=== PATIENT | female | born 2000 | race Caucasian/White ===

== ENCOUNTER 2019-01-15 21:27 | Emergency (ER) | payer MEDICAID ==
[~2019-01-15] VITALS: Ht 157.5 cm; Wt 106.6 kg
[2019-01-15 21:32] VITALS: BP 148/80
--- NOTE | 2019-01-15 21:33 | NUR ---
PT AMBULATORY TO ER LOBBY W/ STEADY GAIT IN STABLE CONDITION.
--- NOTE | 2019-01-15 23:36 | NUR ---
ASSUMED CARE OF PT AT THIS TIME. C/O RIGHT INGUINAL ABSCESS X 2 DAYS. AAOX4 WITH EVEN AND STEADY GAIT; PATIENT STATES PAIN OF 8/10; VSS; PATIENT POSITIONED FOR COMFORT; HOB ELEVATED; BEDRAILS UP X2; BED DOWN. ER MD MADE AWARE OF PT STATUS. WILL CONTINUE TO MONITOR.
--- NOTE | 2019-01-15 23:36 | NUR ---
PT AMBULATED TO BED 09.
[2019-01-15] MEDS ORDERED: SULFAMETH/TRIMETH DS 800/160MG 1 TAB PO ONE (23:45)
[2019-01-15] MEDS ORDERED: CEPHALEXIN 500 MG CAP PO ONE (23:45)
[2019-01-16 00:10] VITALS: BP 139/81
--- NOTE | 2019-01-16 00:10 | NUR ---
Patient discharged with v/s stable. Written and verbal after care instructions given and explained. Patient alert, oriented and verbalized understanding of instructions. Ambulatory with steady gait. All questions addressed prior to discharge. ID band removed. Patient advised to follow up with PMD. Rx of BACTRIM AND KEFLEX given. Patient educated on indication of medication including possible reaction and side effects. Opportunity to ask questions provided and answered.
== END 2019-01-16 00:10 | disposition home or self-care (01) ==
LOC: MED 21:27
DX: L02.415 Cutaneous abscess of right lower limb (principal); E11.9 Type 2 diabetes mellitus without complications; J45.909 Unspecified asthma, uncomplicated
CPT/HCPCS: 99283

== ENCOUNTER 2019-02-12 12:58 | Emergency (ER) | payer MEDICAID ==
[~2019-02-12] VITALS: Ht 154.9 cm; Wt 99.9 kg
[2019-02-12 13:15] VITALS: BP 136/63
[2019-02-12] MEDS ORDERED: METF500T PO (13:31)
--- NOTE | 2019-02-12 13:46 | NUR ---
Patient ambulated to bed 12. RN evaluating patient at bedside.
--- NOTE | 2019-02-12 13:55 | NUR ---
PATIENT PRESENTS TO ED WITH c/o vaginal clitoris area with an abrasion, redness, tender s/p stratched by pt as described by her. yellowish dc as well ---has been applying neosporin .. unknown last tetanus DENIES N/V/D; SKIN IS PINK/WARM/DRY; AAOX4 WITH EVEN AND STEADY GAIT; LUNGS CLEAR BL; HR EVEN AND REGULAR; PT DENIES ANY FEVER, CP, SOB, OR COUGH AT THIS TIME; PATIENT STATES PAIN OF 9/10 AT THIS TIME; VSS; PATIENT POSITIONED FOR COMFORT; HOB ELEVATED; BEDRAILS UP X2; BED DOWN. ER MD MADE AWARE OF PT STATUS.
--- NOTE | 2019-02-12 14:36 | NUR ---
Patient discharged with v/s stable. Written and verbal after care instructions given and explained. Patient alert, oriented and verbalized understanding of instructions. Ambulatory with steady gait. All questions addressed prior to discharge. ID band removed. Patient advised to follow up with PMD. Rx of diflucan/keflex/clotrimazole/metformin given. Patient educated on indication of medication including possible reaction and side effects. Opportunity to ask questions provided and answered.
[2019-02-12 14:37] VITALS: BP 133/91
== END 2019-02-12 14:36 | disposition home or self-care (01) ==
LOC: MED 12:58
DX: S30.814A Abrasion of vagina and vulva, initial encounter (principal); N76.0 Acute vaginitis; B37.3 Candidiasis of vulva and vagina; N39.0 Urinary tract infection, site not specified; E11.65 Type 2 diabetes mellitus with hyperglycemia; F17.210 Nicotine dependence, cigarettes, uncomplicated; J45.909 Unspecified asthma, uncomplicated; Z79.84 Long term (current) use of oral hypoglycemic drugs; X58.XXXA Exposure to other specified factors, initial encounter; Y93.89 Activity, other specified; Y92.89 Other specified places as the place of occurrence of the external cause; Y99.8 Other external cause status
CPT/HCPCS: 81002; 81025; 82948; 90471; 90715; 99283

== ENCOUNTER 2019-04-18 21:06 | Emergency (ER) | payer MEDICAID ==
[~2019-04-18] VITALS: Ht 157.5 cm; Wt 99.8 kg
[~2019-04-18 21:06] MED LIST: METF500T PO
[2019-04-18 21:16] VITALS: BP 120/82
--- NOTE | 2019-04-18 21:16 | NUR ---
TO BED # 02 AMBULATORY
--- NOTE | 2019-04-18 21:20 | NUR ---
PT IS A 18 Y/O FEMALE WHO PRESENTS TO THE ED C/O VAGINAL PAIN. PT STATES THAT SHE WAS SHOWERING X4 DAYS WHEN SHE NICKED HER VAGINA. PT REPORTS 6/10 BURNING PAIN WITH DISCHARGE. PT DENIES CP, SOB, N/V/D. PT AWAKE AND ALERT, RR EVEN/UNLABORED. PT REPOSITIONED FOR COMFORT, BED IN LOWEST POSITION. ER MD DR. HOWARD NOTIFIED. WILL CONTINUE TO MONITOR. PMH---JENNIFER MIRA
[2019-04-18] MEDS ORDERED: NACL 0.9% 2,000 ML IV ONE (22:09)
[2019-04-18 22:34] LABS: BASOPHILS % (AUTO) 0.5 % (0.0-2.0); EOSINOPHILS # (AUTO) 0.1 K/uL (0-0.4); EOSINOPHILS % (AUTO) 1.2 % (0.0-4.0); HEMATOCRIT 46.4 % (36-48); HEMOGLOBIN 15.7 g/dL (12.0-16.0); LYMPHOCYTES # (AUTO) 2.2 K/uL (2.5-16.5); LYMPHOCYTES % (AUTO) 30.6 % (20.5-51.1); MEAN CORPUSCULAR HEMOGLOBIN 30 pg (27-31); MEAN CORPUSCULAR HGB CONC 34 g/dL (33-37); MEAN CORPUSCULAR VOLUME 88.5 fL (80-94); MONOCYTES # (AUTO) 0.5 K/uL (0.8-1.0); MONOCYTES % (AUTO) 6.6 % (1.7-9.3); NEUTROPHILS # (AUTO) 4.4 K/uL (1.8-7.7); NEUTROPHILS % (AUTO) 61.1 % (42.2-75.2); PLATELET COUNT (AUTO) 189 K/uL (140-450); RED BLOOD CELL COUNT(AUTO) 5.24 MIL/uL (4.20-5.40); RED CELL DISTRIBUTION WIDTH 12.8 % (11.6-13.7); WHITE BLOOD COUNT (AUTO) 7.2 K/uL (4.5-11.0)
[2019-04-18 22:49] LABS: ALBUMIN 3.5 g/dL (3.4-5.0); ANION GAP 12.8 (8-16); CARBON DIOXIDE 28.3 mmol/L (21-32); CREATININE 0.8 mg/dL (0.6-1.3); POTASSIUM 4.1 mmol/L (3.5-5.1); TOTAL BILIRUBIN 0.4 mg/dL (0.0-1.0)
[2019-04-18] MEDS ORDERED: INSULIN REGULAR, HUMAN 100 UNIT/ML VIAL IV ONE (23:20)
[2019-04-18 23:37] LABS: APPEARANCE,URINE SL CLOUDY (CLEAR); BILIRUBIN,URINE NEGATIVE (NEGATIVE); BLOOD, URINE NEGATIVE (NEGATIVE); COLOR,URINE YELLOW (YELLOW); LEUKOCYTE ESTERASE ,URINE TRACE (NEGATIVE); NITRITE, URINE NEGATIVE (NEGATIVE); UGLUCOSE 3+ (NEGATIVE)
[2019-04-18 23:50] LABS: RBC,URINE 0-5 /HPF (0-5); TRICHOMONAS,URINE Few /HPF (None Seen)
--- NOTE | 2019-04-19 02:30 | NUR ---
ALL RESULTS BACK AND NOTED BY ERMD AND FOR D/C
[2019-04-19 02:50] VITALS: BP 110/78
--- NOTE | 2019-04-19 02:50 | NUR ---
Patient discharged with v/s stable. Written and verbal after care instructions given and explained. Patient alert, oriented and verbalized understanding of instructions. Ambulatory with steady gait. All questions addressed prior to discharge. ID band removed. Patient advised to follow up with PMD. Rx of KEFLEX, MICONAZOLE, FLAGYL given. Patient educated on indication of medication including possible reaction and side effects. Opportunity to ask questions provided and answered.
--- NOTE | 2019-04-19 12:54 | NUR ---
Late entry. Confirmed with RN that 0.9 NS 1000ml IV bolus complete at 2320
[2019-04-21 06:08] LABS: CHLAMYDIA TRACHOMATIS AMP DNA Negative (Negative)
== END 2019-04-19 02:50 | disposition home or self-care (01) ==
LOC: MED 21:06
DX: E11.65 Type 2 diabetes mellitus with hyperglycemia (principal); N39.0 Urinary tract infection, site not specified; N76.0 Acute vaginitis; A59.9 Trichomoniasis, unspecified; J45.909 Unspecified asthma, uncomplicated; F17.210 Nicotine dependence, cigarettes, uncomplicated; Z79.84 Long term (current) use of oral hypoglycemic drugs; Z71.6 Tobacco abuse counseling
CPT/HCPCS: 36415; 80053; 81001; 81025; 83690; 85025; 87086; 87210; 87491; 96361; 96374; 99283; J1815; J7030

== ENCOUNTER 2019-08-16 16:20 | Emergency (ER) | payer MEDICAID ==
[~2019-08-16] VITALS: Ht 160 cm; Wt 91.8 kg
[2019-08-16 16:34] VITALS: BP 153/81
[2019-08-16] MEDS ORDERED: NACL 0.9% 1,000 ML IV ONE (17:15)
[2019-08-16] MEDS ORDERED: MORPHINE SULFATE 4 MG/ML SYR IVP ONE (17:20)
[2019-08-16] MEDS ORDERED: ONDANSETRON 4 MG/2 ML VIAL IVP ONE (17:20)
[2019-08-16 17:52] LABS: APPEARANCE,URINE CLEAR (CLEAR); BILIRUBIN,URINE NEGATIVE (NEGATIVE); BLOOD, URINE NEGATIVE (NEGATIVE); COLOR,URINE YELLOW (YELLOW); LEUKOCYTE ESTERASE ,URINE NEGATIVE (NEGATIVE); NITRITE, URINE NEGATIVE (NEGATIVE); UGLUCOSE 3+ (NEGATIVE)
[2019-08-16] MEDS ORDERED: cefTRIAXone 1,000 MG VIAL ONE (18:03)
[2019-08-16 18:05] LABS: BASOPHILS % (AUTO) 0.3 % (0.0-2.0); EOSINOPHILS # (AUTO) 0.1 K/uL (0-0.4); EOSINOPHILS % (AUTO) 0.7 % (0.0-4.0); HEMATOCRIT 48.9 % (36-48); HEMOGLOBIN 16.7 g/dL (12.0-16.0); LYMPHOCYTES # (AUTO) 2.8 K/uL (2.5-16.5); LYMPHOCYTES % (AUTO) 26.3 % (20.5-51.1); MEAN CORPUSCULAR HEMOGLOBIN 31 pg (27-31); MEAN CORPUSCULAR HGB CONC 34 g/dL (33-37); MEAN CORPUSCULAR VOLUME 89.6 fL (80-94); MONOCYTES # (AUTO) 0.9 K/uL (0.8-1.0); MONOCYTES % (AUTO) 8.4 % (1.7-9.3); NEUTROPHILS # (AUTO) 6.8 K/uL (1.8-7.7); NEUTROPHILS % (AUTO) 64.3 % (42.2-75.2); PLATELET COUNT (AUTO) 235 K/uL (140-450); RED BLOOD CELL COUNT(AUTO) 5.46 MIL/uL (4.20-5.40); RED CELL DISTRIBUTION WIDTH 12.4 % (11.6-13.7); WHITE BLOOD COUNT (AUTO) 10.5 K/uL (4.5-11.0)
[2019-08-16 19:03] LABS: ANION GAP 15.3 (8-16); CARBON DIOXIDE 27.7 mmol/L (21-32); CREATININE 0.8 mg/dL (0.6-1.3)
[2019-08-16 19:11] LABS: ALBUMIN 3.7 g/dL (3.4-5.0); TOTAL BILIRUBIN 0.7 mg/dL (0.0-1.0)
[2019-08-16] MEDS ORDERED: LIDOCAINE MPF 1% 10 ML ONE (19:34)
[2019-08-16] MEDS ORDERED: LIDOCAINE MPF 1% 10 MG/ML VIAL INJ ONE (19:35)
[2019-08-16 20:55] VITALS: BP 142/88
== END 2019-08-16 20:55 | disposition home or self-care (01) ==
LOC: MED 16:20
DX: L02.214 Cutaneous abscess of groin (principal); E11.9 Type 2 diabetes mellitus without complications; J45.909 Unspecified asthma, uncomplicated; Z79.84 Long term (current) use of oral hypoglycemic drugs
CPT/HCPCS: 10060; 36415; 80053; 81003; 81025; 82948; 85025; 96361; 96365; 96375; 99283; J0696; J2001; J2270; J2405; J7030

== ENCOUNTER 2019-08-19 13:46 | Emergency (ER) | payer MEDICAID ==
[~2019-08-19] VITALS: Ht 160 cm; Wt 99.8 kg
[2019-08-19 13:51] VITALS: BP 154/81
[2019-08-19] MEDS ORDERED: BACITRACIN OINT 500 UNITS/GM PKT TP ONE (14:59)
[2019-08-19] MEDS: BACITRACIN OINT 500 UNITS/GM PKT TP ONE (15:01)
[2019-08-19 15:16] VITALS: BP 145/76
== END 2019-08-19 15:15 | disposition home or self-care (01) ==
LOC: MED 13:46
DX: L03.314 Cellulitis of groin (principal); J45.909 Unspecified asthma, uncomplicated; E11.9 Type 2 diabetes mellitus without complications; Z79.899 Other long term (current) drug therapy
CPT/HCPCS: 99283

== ENCOUNTER 2019-09-08 13:46 | Emergency (ER) | payer MEDICAID ==
[~2019-09-08] VITALS: Ht 160 cm; Wt 99.8 kg
[2019-09-08 13:55] VITALS: BP 149/68
--- NOTE | 2019-09-08 14:10 | NUR ---
C/O ABCESS TO L GROIN AREA X2 DAYS. PT STATES SHE GETS FREQUENT ABCESSES IN THE GROIN/BUTTOCKS AREA AND JUST HAD ONE ON THE R SIDE A FEW WEEKS AGO. L GROIN AREA + FOR REDNESS/SWELLING. PT DENIES N/V/D/FEVER. BED IN LOW POSITION, SIDE RAIL UP.
[2019-09-08] MEDS ORDERED: NACL 0.9% 1,000 ML IV ONE (14:30)
--- NOTE | 2019-09-08 14:30 | NUR ---
PA CHOPRA AT BEDSIDE EVALUATING PT
[2019-09-08] MEDS ORDERED: KETOROLAC 30 MG/ML VIAL IVP ONE (14:45)
[2019-09-08] MEDS ORDERED: cefTRIAXone 1,000 MG VIAL ONE (14:49)
[2019-09-08 14:53] LABS: BASOPHILS % (AUTO) 0.5 % (0.0-2.0); EOSINOPHILS # (AUTO) 0.1 K/uL (0-0.4); EOSINOPHILS % (AUTO) 1.2 % (0.0-4.0); HEMATOCRIT 45.5 % (36-48); HEMOGLOBIN 15.2 g/dL (12.0-16.0); LYMPHOCYTES # (AUTO) 2.2 K/uL (2.5-16.5); LYMPHOCYTES % (AUTO) 25.6 % (20.5-51.1); MEAN CORPUSCULAR HEMOGLOBIN 30 pg (27-31); MEAN CORPUSCULAR HGB CONC 33 g/dL (33-37); MEAN CORPUSCULAR VOLUME 89.5 fL (80-94); MONOCYTES # (AUTO) 0.8 K/uL (0.8-1.0); MONOCYTES % (AUTO) 8.9 % (1.7-9.3); NEUTROPHILS # (AUTO) 5.4 K/uL (1.8-7.7); NEUTROPHILS % (AUTO) 63.8 % (42.2-75.2); PLATELET COUNT (AUTO) 183 K/uL (140-450); RED BLOOD CELL COUNT(AUTO) 5.08 MIL/uL (4.20-5.40); RED CELL DISTRIBUTION WIDTH 12.5 % (11.6-13.7); WHITE BLOOD COUNT (AUTO) 8.4 K/uL (4.5-11.0)
[2019-09-08 15:14] LABS: ALBUMIN 3.3 g/dL (3.4-5.0); ANION GAP 13.7 (8-16); CARBON DIOXIDE 24.3 mmol/L (21-32); CREATININE 0.9 mg/dL (0.6-1.3); TOTAL BILIRUBIN 0.7 mg/dL (0.0-1.0)
[2019-09-08] MEDS ORDERED: INSULIN REGULAR, HUMAN 100 UNIT/ML VIAL IVP ONE (15:25)
[2019-09-08 16:47] VITALS: BP 140/70
--- NOTE | 2019-09-08 16:48 | NUR ---
Patient discharged with v/s stable. Written and verbal after care instructions given and explained. Patient alert, oriented and verbalized understanding of instructions. Ambulatory with steady gait. All questions addressed prior to discharge. ID band removed. Patient advised to follow up with PMD. Rx of BACTRIM & MOTRIN given. Patient educated on indication of medication including possible reaction and side effects. Opportunity to ask questions provided and answered.
== END 2019-09-08 16:48 | disposition home or self-care (01) ==
LOC: MED 13:46
DX: L03.316 Cellulitis of umbilicus (principal); J45.909 Unspecified asthma, uncomplicated; E11.9 Type 2 diabetes mellitus without complications; Z79.84 Long term (current) use of oral hypoglycemic drugs
CPT/HCPCS: 36415; 80053; 82948; 85025; 96365; 96375; 99283; J0696; J1815; J1885; 96361

== ENCOUNTER 2019-12-11 08:24 | Emergency (ER) | payer MEDICAID, OTHER ==
[~2019-12-11] VITALS: Ht 160 cm; Wt 99.8 kg
[2019-12-11 08:28] VITALS: BP 159/88
--- NOTE | 2019-12-11 08:33 | NUR ---
amb to bed 04
--- NOTE | 2019-12-11 08:38 | NUR ---
19 Y/O FEMALE C/O RT EAR PAIN RADIATING TO JAW AND MOUTH X 2 DAYS. PT STATES SHE HAD WISDOM TEETH REMOVED X 3 WKS AGO, FOLLOW UP WITH DENTIST STATED EVERYTHING WAS NORMAL. 10/10 SHARP CONSTANT PAIN TO EAR. DENIES FEVER. STATES NO DRAINAGE FROM EAR. TOOK TYLENOL AT 0600 WITH NO PAIN RELIEF. NO NOTICABLE SWELLING/DEFORMITY. RR EVEN AND UNLABORED. PT SITTING UPRIGHT IN BED TEARFUL. FRIEND AT BEDSIDE. VSS MEDHX: ASTHMA, DM ALLERGIES: NKA
--- NOTE | 2019-12-11 08:58 | NUR ---
DR BE AT BEDSIDE EXAMINING PT
[2019-12-11] MEDS ORDERED: KETOROLAC 30 MG/ML VIAL IM ONE (09:15)
[2019-12-11 09:32] VITALS: BP 141/78
--- NOTE | 2019-12-11 09:32 | NUR ---
DECREASE IN PAIN, 5/10 TOLERABLE PAIN
--- NOTE | 2019-12-11 09:32 | NUR ---
Patient discharged with v/s stable. Written and verbal after care instructions given and explained. Patient alert, oriented and verbalized understanding of instructions. Ambulatory with steady gait. All questions addressed prior to discharge. ID band removed. Patient advised to follow up with PMD. Rx of NORCO, IBUPROFEN, AND PENICILLIN given. Patient educated on indication of medication including possible reaction and side effects. Opportunity to ask questions provided and answered.
== END 2019-12-11 09:32 | disposition home or self-care (01) ==
LOC: MED 08:24
DX: R51 Headache (principal); J45.909 Unspecified asthma, uncomplicated; E11.9 Type 2 diabetes mellitus without complications; Z79.84 Long term (current) use of oral hypoglycemic drugs
CPT/HCPCS: 96372; 99283; J1885

== ENCOUNTER 2020-06-21 16:04 | Emergency (ER) | payer MEDICAID, OTHER ==
[~2020-06-21] VITALS: Ht 160 cm; Wt 94.3 kg
[2020-06-21 16:13] VITALS: BP 130/73
--- NOTE | 2020-06-21 16:17 | NUR ---
19/F C/O POSTERIOR NECK PAIN X 3-4 DAYS. STATES PAIN WAS A "SHOCK" STARTED FROM THE ARMS AND RADIATING TO THE NECK THAT STARTED AFTER SHE CARTWHEELED 3-4 DAYS AGO. PT STATES SHE WENT TO [place] TODAY AND RECEIVED A "SHOT FOR PAIN", DENIES IMAGING DONE. HX- DM, ASTHMA
--- NOTE | 2020-06-21 16:25 | NUR ---
DR. TOTH EVALUATING PT AT BEDSIDE
[2020-06-21] MEDS ORDERED: methocarbamoL 500 MG TAB PO STA (16:34)
[2020-06-21] MEDS ORDERED: LORazepam 2 MG/ML VIAL IVP ONE (16:35)
--- NOTE | 2020-06-21 16:44 | NUR ---
HIDE MILL WORKER AT BEDSIDE
[2020-06-21 16:55] LABS: BASOPHILS # (AUTO) 0.1 K/uL (0.00-0.22); BASOPHILS % (AUTO) 0.5 % (0.0-2.0); EOSINOPHILS # (AUTO) 0.2 K/uL (0-0.4); EOSINOPHILS % (AUTO) 1.5 % (0.0-4.0); HEMATOCRIT 44.3 % (36-48); HEMOGLOBIN 14.8 g/dL (12.0-16.0); LYMPHOCYTES # (AUTO) 3.2 K/uL (2.5-16.5); MEAN CORPUSCULAR HEMOGLOBIN 30 pg (27-31); MEAN CORPUSCULAR HGB CONC 33 g/dL (33-37); MEAN CORPUSCULAR VOLUME 89.6 fL (80-94); MONOCYTES % (AUTO) 8.5 % (1.7-9.3); NEUTROPHILS # (AUTO) 7.1 K/uL (1.8-7.7); NEUTROPHILS % (AUTO) 61.5 % (42.2-75.2); PLATELET COUNT (AUTO) 231 K/uL (140-450); RED BLOOD CELL COUNT(AUTO) 4.95 MIL/uL (4.20-5.40); WHITE BLOOD COUNT (AUTO) 11.5 K/uL (4.8-10.8)
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
--- NOTE | 2020-06-21 17:10 | NUR ---
DR. TOTH SPEAKING W/ PT AT BEDSIDE
[2020-06-21 17:11] LABS: ALBUMIN 4.1 g/dL (3.4-5.0); ANION GAP 16.1 (8-16); CARBON DIOXIDE 24.4 mmol/L (21-32); CREATININE 0.9 mg/dL (0.6-1.3); POTASSIUM 3.5 mmol/L (3.5-5.1); TOTAL BILIRUBIN 0.6 mg/dL (0.0-1.0)
[2020-06-21] MEDS ORDERED: LORazepam 1 MG TAB PO STA (17:12)
--- NOTE | 2020-06-21 17:23 | NUR ---
CALLED & ASKED LAB TO [employer] WORKER URINE SAMPLE
[2020-06-21 17:31] LABS: APPEARANCE,URINE CLEAR (CLEAR); BILIRUBIN,URINE NEGATIVE (NEGATIVE); BLOOD, URINE NEGATIVE (NEGATIVE); COLOR,URINE YELLOW (YELLOW); LEUKOCYTE ESTERASE ,URINE NEGATIVE (NEGATIVE); NITRITE, URINE NEGATIVE (NEGATIVE); UGLUCOSE 1+ (NEGATIVE)
[2020-06-21 17:39] LABS: BARBITURATE, URINE NEGATIVE ng/ml (NEG <=200); BENZODIAZEPINE, URINE NEGATIVE ng/mL (NEG <=200); CANNABINOID, URINE POSITIVE ng/mL (NEG <=50); COCAINE, URINE NEGATIVE ng/mL (NEG <=300); OPIATE, URINE NEGATIVE ng/mL (NEG <=2000); PHENCYCLIDINE SCREEN,URINE NEGATIVE ng/mL (NEG <=25)
--- NOTE | 2020-06-21 18:19 | NUR ---
Patient discharged with v/s stable. Written and verbal after care instructions given and explained. Patient alert, oriented and verbalized understanding of instructions. Ambulatory with steady gait. All questions addressed prior to discharge. ID band removed. Patient advised to follow up with PMD. Rx of ROBAXIN given. Patient educated on indication of medication including possible reaction and side effects. Opportunity to ask questions provided and answered.
[2020-06-21 18:20] VITALS: BP 137/79
== END 2020-06-21 18:19 | disposition home or self-care (01) ==
LOC: MED 16:04
DX: M62.838 Other muscle spasm (principal); R53.1 Weakness; R55 Syncope and collapse
CPT/HCPCS: 36415; 80053; 80305; 81003; 84484; 85025; 85379; 93005; 99284; J2060

== ENCOUNTER 2020-06-27 02:20 | Emergency (ER) | payer OTHER ==
[~2020-06-27] VITALS: Ht 157.5 cm; Wt 94.3 kg
[2020-06-27 02:28] VITALS: BP 133/74
[2020-06-27 02:32] VITALS: BP 133/74
[2020-06-27] MEDS ORDERED: KETOROLAC 60 MG/2 ML VIAL IM ONE (03:00)
[2020-06-27 03:06] LABS: BARBITURATE, URINE NEGATIVE ng/ml (NEG <=200); BENZODIAZEPINE, URINE NEGATIVE ng/mL (NEG <=200); CANNABINOID, URINE POSITIVE ng/mL (NEG <=50); COCAINE, URINE NEGATIVE ng/mL (NEG <=300); OPIATE, URINE NEGATIVE ng/mL (NEG <=2000); PHENCYCLIDINE SCREEN,URINE NEGATIVE ng/mL (NEG <=25)
== END 2020-06-27 03:50 | disposition home or self-care (01) ==
LOC: MED 02:20
DX: S16.1XXA Strain of muscle, fascia and tendon at neck level, initial encounter (principal); R03.0 Elevated blood-pressure reading, without diagnosis of hypertension; J45.909 Unspecified asthma, uncomplicated; E11.9 Type 2 diabetes mellitus without complications; F12.10 Cannabis abuse, uncomplicated; Z79.84 Long term (current) use of oral hypoglycemic drugs; X58.XXXA Exposure to other specified factors, initial encounter; Y93.89 Activity, other specified; Y92.89 Other specified places as the place of occurrence of the external cause; Y99.8 Other external cause status
CPT/HCPCS: 80305; 81002; 81025; 96372; 99283; J1885

== ENCOUNTER 2020-06-27 22:56 | Emergency (ER) | payer OTHER ==
[~2020-06-27] VITALS: Ht 160 cm; Wt 94.3 kg
[2020-06-27 23:03] VITALS: BP 145/83
[2020-06-27] MEDS ORDERED: KETOROLAC 30 MG/ML VIAL IM ONE (23:35)
[2020-06-27] MEDS ORDERED: diazePAM 5 MG TAB PO ONE (23:35)
[2020-06-27 23:54] VITALS: BP 145/83
== END 2020-06-27 23:54 | disposition home or self-care (01) ==
LOC: MED 22:56
DX: M62.830 Muscle spasm of back (principal); M54.2 Cervicalgia; I10 Essential (primary) hypertension; E11.9 Type 2 diabetes mellitus without complications; J45.909 Unspecified asthma, uncomplicated; Z79.84 Long term (current) use of oral hypoglycemic drugs
CPT/HCPCS: 96372; 99283; J1885

== ENCOUNTER 2021-04-06 01:55 | Emergency (ER) | payer OTHER, MEDICAID ==
[~2021-04-06] VITALS: Ht 160 cm; Wt 95.3 kg
[2021-04-06 02:00] VITALS: BP 138/70
[2021-04-06] MEDS ORDERED: SULF-59 PO (02:59)
[2021-04-06] MEDS ORDERED: ACET-8386 PO (02:59)
[2021-04-06] MEDS: MORPHINE SULFATE 4 MG/ML SYR IM ONE (03:04)
[2021-04-06 04:35] VITALS: BP 138/70
== END 2021-04-06 04:35 | disposition home or self-care (01) ==
LOC: MED 01:55
DX: L02.214 Cutaneous abscess of groin (principal); F12.10 Cannabis abuse, uncomplicated; E11.9 Type 2 diabetes mellitus without complications; J45.909 Unspecified asthma, uncomplicated; I10 Essential (primary) hypertension; Z79.82 Long term (current) use of aspirin
CPT/HCPCS: 96372; 99283; J2270

== ENCOUNTER 2022-04-21 19:47 | Emergency (ER) | payer MEDICAID, OTHER ==
[~2022-04-21] VITALS: Ht 160 cm; Wt 98.4 kg
[~2022-04-21 19:47] MED LIST changes: +ACET-8386 PO; +METF-346 PO; -METF500T PO; +SULF-59 PO
[2022-04-21 19:50] VITALS: BP 150/76
[2022-04-21] MEDS ORDERED: HYD1C TP (21:17)
[2022-04-21] MEDS ORDERED: CLOT14CR2 TP (21:17)
== END 2022-04-21 21:47 | disposition home or self-care (01) ==
LOC: MED 19:47
DX: L25.9 Unspecified contact dermatitis, unspecified cause (principal); R10.33 Periumbilical pain; J45.909 Unspecified asthma, uncomplicated; E11.9 Type 2 diabetes mellitus without complications; I10 Essential (primary) hypertension; F12.90 Cannabis use, unspecified, uncomplicated; Z79.899 Other long term (current) drug therapy; Z79.84 Long term (current) use of oral hypoglycemic drugs
CPT/HCPCS: 99282

== ENCOUNTER 2022-05-08 23:48 | Emergency (ER) | payer OTHER ==
[~2022-05-08] VITALS: Ht 160 cm; Wt 95.3 kg
[~2022-05-08 23:48] MED LIST changes: +CLOT14CR2 TP; +HYD1C TP
[2022-05-08 23:54] VITALS: BP 132/82
--- NOTE | 2022-05-08 23:54 | NUR ---
PT [facility]LON BLS. TAKEN TO BED 3
--- NOTE | 2022-05-09 00:06 | NUR ---
Dr. Hein examining patient with BONG Zheng
[2022-05-09] MEDS ORDERED: HYDROcodone/APAP 7.5/325 MG 1 TAB PO ONE (00:15)
[2022-05-09] MEDS ORDERED: cephALEXin 500 MG CAP PO ONE (00:15)
[2022-05-09] MEDS ORDERED: CEPH-588 PO (00:26)
[2022-05-09] MEDS ORDERED: IBUP-2218 PO (00:26)
--- NOTE | 2022-05-09 00:27 | NUR ---
ER physician assessing patient.
[2022-05-09 00:56] VITALS: BP 136/76
--- NOTE | 2022-05-09 00:56 | NUR ---
Patient discharged with v/s stable. Written and verbal after care instructions given and explained. Patient alert, oriented and verbalized understanding of instructions. Ambulatory with steady gait. All questions addressed prior to discharge. ID band removed. Patient advised to follow up with PMD. Rx of IBUPROFEN AND KEFLEX given. Patient educated on indication of medication including possible reaction and side effects. Opportunity to ask questions provided and answered.
== END 2022-05-09 00:56 | disposition home or self-care (01) ==
LOC: MED 23:48
DX: L03.311 Cellulitis of abdominal wall (principal); J45.909 Unspecified asthma, uncomplicated; E11.9 Type 2 diabetes mellitus without complications; I10 Essential (primary) hypertension; Z79.899 Other long term (current) drug therapy; Z79.84 Long term (current) use of oral hypoglycemic drugs
CPT/HCPCS: 81025; 99283

== ENCOUNTER 2022-05-11 20:12 | Emergency (ER) | payer OTHER ==
[~2022-05-11] VITALS: Ht 160 cm; Wt 95.3 kg
[~2022-05-11 20:12] MED LIST changes: +CEPH-588 PO; +IBUP-2218 PO
[2022-05-11 20:30] VITALS: BP 130/74
--- NOTE | 2022-05-11 20:33 | NUR ---
TO LOBBY A/W BED AMBULATORY
--- NOTE | 2022-05-11 22:34 | NUR ---
PT AMBULATED TO BED #2
--- NOTE | 2022-05-11 23:51 | NUR ---
DR. RODRIGUEZ AT BEDSIDE FOR MSE
[2022-05-11] MEDS ORDERED: KETOROLAC 60 MG/2 ML VIAL IM ONE (23:55)
[2022-05-12] MEDS ORDERED: CEPH500C16 PO (00:02)
[2022-05-12] MEDS ORDERED: IBUP-2213 PO (00:02)
[2022-05-12 00:10] VITALS: BP 130/74
--- NOTE | 2022-05-12 00:10 | NUR ---
Patient discharged with v/s stable. Written and verbal after care instructions given and explained. Patient alert, oriented and verbalized understanding of instructions. Ambulatory with steady gait. All questions addressed prior to discharge. ID band removed. Patient advised to follow up with PMD. Rx of Keflex, Ibuprofen given. Patient educated on indication of medication including possible reaction and side effects. Opportunity to ask questions provided and answered.
== END 2022-05-12 00:10 | disposition home or self-care (01) ==
LOC: MED 20:12
DX: L02.211 Cutaneous abscess of abdominal wall (principal); F12.90 Cannabis use, unspecified, uncomplicated
CPT/HCPCS: 96372; 99283; J1885

== ENCOUNTER 2022-08-31 18:57 | Emergency (ER) | payer MEDICAID, OTHER ==
[~2022-08-31] VITALS: Ht 165.1 cm; Wt 90.7 kg
[~2022-08-31 18:57] MED LIST changes: +CEPH500C16 PO; +IBUP-2213 PO
[2022-08-31 19:09] VITALS: BP 127/79
--- NOTE | 2022-08-31 19:13 | NUR ---
BIBA TO BED 8.
--- NOTE | 2022-08-31 20:45 | NUR ---
pt. swabbed for covid. swab sent to lab.
--- NOTE | 2022-08-31 20:48 | NUR ---
RT INFORMED OF BREATHING TREATMENT.
[2022-08-31] MEDS: ALBUTEROL SULFATE/IPRATROPIU 3 ML SOL IH ONE (21:11)
[2022-08-31 21:18] LABS: BASOPHILS % (AUTO) 0.5 % (0.0-2.0); EOSINOPHILS # (AUTO) 0.2 K/uL (0-0.4); EOSINOPHILS % (AUTO) 3.9 % (0.0-4.0); HEMATOCRIT 41.2 % (36-48); HEMOGLOBIN 13.9 g/dL (12.0-16.0); LYMPHOCYTES # (AUTO) 2.7 K/uL (2.5-16.5); LYMPHOCYTES % (AUTO) 43.3 % (20.5-51.1); MEAN CORPUSCULAR HEMOGLOBIN 30 pg (27-31); MEAN CORPUSCULAR HGB CONC 34 g/dL (33-37); MONOCYTES # (AUTO) 0.7 K/uL (0.8-1.0); MONOCYTES % (AUTO) 11.3 % (1.7-9.3); NEUTROPHILS # (AUTO) 2.6 K/uL (1.8-7.7); PLATELET COUNT (AUTO) 218 K/uL (140-450); RED BLOOD CELL COUNT(AUTO) 4.57 MIL/uL (4.20-5.40); WHITE BLOOD COUNT (AUTO) 6.3 K/uL (4.8-10.8)
--- NOTE | 2022-08-31 21:23 | NUR ---
PT. SWABBED FOR FLU. SWAB GIVEN TO ELECTRIC REPAIR SUPERVISOR
--- NOTE | 2022-08-31 21:24 | NUR ---
PT. TOLERATED BREATHING TREATMENT WELL. PT STATES SOME RELIEF.
[2022-08-31 21:35] LABS: ALBUMIN 3.1 g/dL (3.4-5.0); ANION GAP 11.4 (8-16); ASPARTATE AMINOTRANSFERASE 29 U/L (15-37); CARBON DIOXIDE 30.6 mmol/L (21-32); CHLORIDE 100 mmol/L (98-107); CREATININE 0.9 mg/dL (0.6-1.3); GFR ARICAN-AMERICAN 100 mL/min (>90); GLUCOSE 304 mg/dL (74-106); SODIUM SERUM 138 mmol/L (136-145); TOTAL BILIRUBIN 0.2 mg/dL (0.0-1.0); UREA NITROGEN, BLOOD 13 mg/dL (7-18)
[2022-08-31] MEDS ORDERED: ALBU0.0912 IH (23:40)
[2022-08-31 23:46] VITALS: BP 133/71
--- NOTE | 2022-08-31 23:46 | NUR ---
Patient discharged with v/s stable. Written and verbal after care instructions given and explained. Patient alert, oriented and verbalized understanding of instructions. Ambulatory with steady gait. All questions addressed prior to discharge. ID band removed. Patient advised to follow up with PMD. Rx of ALBUTEROL given.
== END 2022-08-31 23:46 | disposition home or self-care (01) ==
LOC: MED 18:57
DX: J45.901 Unspecified asthma with (acute) exacerbation (principal); Z20.822 Contact with and (suspected) exposure to COVID-19; R42 Dizziness and giddiness; R05.9 Cough, unspecified; R06.00 Dyspnea, unspecified; E11.9 Type 2 diabetes mellitus without complications; Z79.899 Other long term (current) drug therapy; Z79.84 Long term (current) use of oral hypoglycemic drugs
CPT/HCPCS: 36415; 71045; 80053; 81002; 81025; 84484; 85025; 85379; 87426; 87804; 93005; 99285; J7030; Q0092

== ENCOUNTER 2024-05-11 22:16 | Emergency (ER) | payer OTHER ==
[~2024-05-11] VITALS: Ht 165.1 cm; Wt 104.3 kg
[~2024-05-11 22:16] MED LIST changes: -ACET-8386 PO; +ACET-8905 PO; +ALBU0.0912 IH
[2024-05-11 22:27] VITALS: BP 147/95; PULSE 97; RESP 14; TEMP 97.8; O2SAT 98
[2024-05-11 22:41] VITALS: O2SAT 98
[2024-05-11 22:48] VITALS: BP 146/94; PULSE 102; RESP 15; TEMP 97.8; O2SAT 99
[2024-05-12] MEDS: OLANZapine 5 MG ODT SL ONE (00:44)
[2024-05-12 01:23] LABS: BASOPHILS % (AUTO) 0.3 % (0.0-2.0); EOSINOPHILS # (AUTO) 0.1 K/uL (0-0.4); EOSINOPHILS % (AUTO) 0.5 % (0.0-4.0); HEMATOCRIT 42.3 % (36-48); HEMOGLOBIN 14.4 g/dL (12.0-16.0); LYMPHOCYTES # (AUTO) 2.8 K/uL (2.5-16.5); LYMPHOCYTES % (AUTO) 27.9 % (20.5-51.1); MEAN CORPUSCULAR HEMOGLOBIN 31 pg (27-31); MEAN CORPUSCULAR HGB CONC 34 g/dL (33-37); MEAN CORPUSCULAR VOLUME 90.3 fL (80-94); MONOCYTES # (AUTO) 0.8 K/uL (0.8-1.0); MONOCYTES % (AUTO) 7.6 % (1.7-9.3); NEUTROPHILS # (AUTO) 6.3 K/uL (1.8-7.7); NEUTROPHILS % (AUTO) 63.7 % (42.2-75.2); PLATELET COUNT (AUTO) 228 K/uL (140-450); RED BLOOD CELL COUNT(AUTO) 4.69 MIL/uL (4.20-5.40); RED CELL DISTRIBUTION WIDTH 13.2 % (11.6-13.7)
[2024-05-12 01:27] LABS: ANION GAP 10.8 (8-16); CALCIUM 8.9 mg/dL (8.5-10.1); CARBON DIOXIDE 29.7 mmol/L (21-32); CREATININE 0.8 mg/dL (0.6-1.3); POTASSIUM 3.5 mmol/L (3.5-5.1)
[2024-05-12 01:32] LABS: SALICYLATE < 2.8 mg/dL (2.8-20.0)
[2024-05-12 01:33] LABS: ALCOHOL, BLOOD 10 mg/dL (<10)
[2024-05-12 02:10] LABS: AMPHETAMINE, URINE NEGATIVE ng/ml (NEG <=1000); BARBITURATE, URINE NEGATIVE ng/ml (NEG <=200); BENZODIAZEPINE, URINE NEGATIVE ng/mL (NEG <=200); COCAINE, URINE NEGATIVE ng/mL (NEG <=300)
[2024-05-12 02:11] LABS: CANNABINOID, URINE POSITIVE ng/mL (NEG <=50); OPIATE, URINE NEGATIVE ng/mL (NEG <=2000); PHENCYCLIDINE SCREEN,URINE NEGATIVE ng/mL (NEG <=25)
== END 2024-05-12 03:08 | disposition left against medical advice (07) ==
LOC: MED 22:16
DX: F30.2 Manic episode, severe with psychotic symptoms (principal); F12.10 Cannabis abuse, uncomplicated; J45.909 Unspecified asthma, uncomplicated; E11.9 Type 2 diabetes mellitus without complications; Z79.899 Other long term (current) drug therapy
CPT/HCPCS: 36415; 80048; 80305; 81025; 85025; 99283; G0480; G0482